=== PATIENT | female | born 1980 | race Two or more races ===

== ENCOUNTER 2019-06-11 23:08 | Emergency (ER) | payer SELFPAY ==
[~2019-06-11] VITALS: Ht 165.1 cm; Wt 90.7 kg
[2019-06-11] MEDS ORDERED: ALBUTEROL SULF 2.5 MG/0.5ML(0.5%) NEB SOLN NEB STA (23:26)
[2019-06-11] MEDS ORDERED: IPRATROPIUM BROM 0.5 MG/2.5ML INH SOL NEB ONE (23:30)
[2019-06-12] MEDS ORDERED: IPRATROPIUM BROM 0.5 MG/2.5ML INH SOL NEB ONE (05:30)
[2019-06-12] MEDS ORDERED: ALBUTEROL SULF 2.5 MG/0.5ML(0.5%) NEB SOLN NEB ONE (05:30)
[2019-06-12 07:22] VITALS: BP 127/82
[2019-06-12 08:16] LABS: Urine Bacteria NONE SEEN /hpf (None Seen); Urine Blood Negative /uL (Negative); Urine Mucus FEW (None Seen); Urine Specific Gravity 1.018 (1.001-1.035); Urine WBC 1 /hpf (0 - 5)
== END 2019-06-12 08:56 | disposition home or self-care (01) ==
LOC: ER 23:12
DX: J06.9 Acute upper respiratory infection, unspecified (principal); F41.9 Anxiety disorder, unspecified
CPT/HCPCS: 71046; 81001; 94640; 99284; J7611; J7644